=== PATIENT | female | born 1945 | race Caucasian/White ===

== ENCOUNTER 2021-05-31 14:40 | Day surgery (SDC) | payer MEDICARE, OTHER ==
[2021-05-31] MEDS ORDERED: Xylocaine 1% Vial 30 ML PF IJ ONE (14:41)
[2021-05-31] MEDS ORDERED: Depo-Medrol 40 MG/ML IM ONE (14:41)
[2021-05-31] MEDS ORDERED: Decadron 4 MG INJ IJ ONE (14:41)
[2021-05-31] MEDS ORDERED: BUPIVACAINE 0.5% VIAL IJ ONE (14:41)
[2021-05-31] MEDS ORDERED: Lactated Ringers 1,000 ML IV ONE (16:20)
[2021-05-31] MEDS ORDERED: DIPRIVAN 200 MG/20 ML IV ONE (16:30)
[2021-05-31] MEDS ORDERED: Zofran 4 MG/2 ML VIAL ONE (16:38)
--- NOTE | 2021-06-01 11:31 | XRAY ---
22 seconds fluoroscopy time in surgery for injections of the left Si joint and piriformis muscle.
--- NOTE | 2021-06-03 23:15 | XRAY ---
Indication: Left sacroiliac joint and piriformis injections. Intraoperative fluoroscopy was provided for 22 seconds. 3 digital spot images submitted for interpretation demonstrate one needle tip projected over the inferior aspect of the left sacroiliac joint. Another needle tip is seen projected over the expected left piriformis muscle. A small amount of contrast has been injected at the latter site for needle tip placement. Correlate with intraoperative findings/report.
== END 2021-05-31 16:59 | disposition home or self-care (01) ==
LOC: SDC-PAIN 14:40
PROVIDERS: ATTEND Psychiatry & Neurology Pain Medicine
DX: M46.1 Sacroiliitis, not elsewhere classified (principal); M79.18 Myalgia, other site; Z79.899 Other long term (current) drug therapy
CPT/HCPCS: 20552; 64625; 72202; 77002; 99100; J1030; J1100; J2001; J2405; J2704; Q9966

== ENCOUNTER 2023-09-18 13:14 | Day surgery (SDC) | payer MEDICARE, OTHER ==
[2023-09-18] MEDS ORDERED: Sodium Chloride 0.9(Preservative Free) 10 ML IJ ONE (13:15)
[2023-09-18] MEDS ORDERED: Decadron 4 MG INJ IV ONE (13:15)
[2023-09-18] MEDS ORDERED: DIPRIVAN 200 MG/20 ML IV ONE (16:05)
[2023-09-18] MEDS ORDERED: Lactated Ringers 1,000 ML IV ONE (16:34)
--- NOTE | 2023-09-18 16:48 | XRAY ---
Indication: Left L4-S1 transforaminal VICKI. Intraoperative fluoroscopy provided for 20 seconds. 4 digital spot image submitted for interpretation demonstrates posterior needle tips projecting over the expected left L4 and L5 nerve roots. Small amount of contrast injected for needle tip placement. Correlate with intraoperative findings/report.
--- NOTE | 2023-09-18 16:56 | XRAY ---
20 seconds of fluoroscopy was used in surgery for a left L4-S1 transforaminal VICKI.
== END 2023-09-18 16:31 | disposition home or self-care (01) ==
LOC: SDC-PAIN 13:14
PROVIDERS: ATTEND Psychiatry & Neurology Pain Medicine
DX: M54.16 Radiculopathy, lumbar region (principal)
CPT/HCPCS: 64483; 64484; 72100; 77003; J1100; J2704; Q9966

== ENCOUNTER 2024-09-23 13:04 | Day surgery (SDC) | payer MEDICARE ==
[2024-09-23] MEDS ORDERED: dexAMETHasone sodium phosphate IJ ONE (13:05)
[2024-09-23] MEDS ORDERED: Sodium Chloride 0.9(Preservative Free) 10 ML IJ ONE (13:05)
[2024-09-23] MEDS ORDERED: propofoL IV ONE (15:48)
--- NOTE | 2024-09-23 16:54 | XRAY ---
Indication: Left L4-S1 transforaminal VICKI. Intraoperative fluoroscopy provided for 23 seconds. For digital spot image submitted for interpretation demonstrates posterior needle tips projecting over the expected left L4 and L5 nerve roots. Small amount of contrast injected for needle tip placement. Correlate with intraoperative findings/report.
--- NOTE | 2024-09-23 17:20 | XRAY ---
23 seconds of fluoroscopy were used in surgery for a left L4-S1 transforaminal VICKI.
== END 2024-09-23 16:24 | disposition home or self-care (01) ==
LOC: SDC-PAIN 13:04
PROVIDERS: ATTEND Psychiatry & Neurology Pain Medicine
DX: M54.16 Radiculopathy, lumbar region (principal)
CPT/HCPCS: 64483; 64484; 72100; 77003; J1100; J2704; Q9966

== ENCOUNTER 2024-10-22 14:56 | Day surgery (SDC) | payer MEDICARE ==
[2024-10-22] MEDS ORDERED: Depo-Medrol 40 MG/ML IM ONE (14:57)
[2024-10-22] MEDS ORDERED: LIDOCAINE HCL 1% AMPUL 5 ML IJ ONE (14:57)
[2024-10-22] MEDS ORDERED: BUPIVACAINE 0.5% VIAL IJ ONE (14:57)
--- NOTE | 2024-10-22 21:48 | XRAY ---
Indication: Right shoulder and subacromial bursa injection. Intraoperative fluoroscopy provided for 31 seconds. 3 digital spot images submitted for interpretation demonstrates needle tip projecting over right glenohumeral joint superiorly. Second needle tip subacromial. Small amount of contrast injected for both needle tip placement. Correlate with intraoperative findings/report.
--- NOTE | 2024-10-22 21:50 | XRAY ---
31 seconds of fluoroscopy were used in surgery for a right intra-articular shoulder and a right subacromial bursa injection.
== END 2024-10-22 17:40 | disposition home or self-care (01) ==
LOC: SDC-PAIN 14:56
PROVIDERS: ATTEND Psychiatry & Neurology Pain Medicine
DX: M19.011 Primary osteoarthritis, right shoulder (principal); M75.51 Bursitis of right shoulder
CPT/HCPCS: 20610; 73030; 77002; Q9966

== ENCOUNTER 2024-11-18 15:53 | Day surgery (SDC) | payer MEDICARE ==
[2024-11-18] MEDS ORDERED: Sodium Chloride 0.9(Preservative Free) 10 ML IJ ONE (15:54)
[2024-11-18] MEDS ORDERED: LIDOCAINE HCL 1% AMPUL 5 ML IJ ONE (15:54)
[2024-11-18] MEDS ORDERED: dexAMETHasone sodium phosphate IJ ONE (15:54)
[2024-11-18] MEDS ORDERED: Sodium Chloride 0.9% 250 ML 250 ML IV ONE (16:25)
--- NOTE | 2024-11-18 20:20 | XRAY ---
Indication: Cervical VICKI. Intraoperative fluoroscopy provided for 22 seconds. 2 digital spot images submitted for interpretation demonstrates posterior needle tip projecting posterior to cervical thoracic junction. Small amount of contrast injected for needle tip placement. Correlate with intraoperative findings/report. Incidental lower cervical fusion hardware.
--- NOTE | 2024-11-18 20:27 | XRAY ---
22 seconds of fluoroscopy were used in surgery for a cervical VICKI.
== END 2024-11-18 18:35 | disposition home or self-care (01) ==
LOC: SDC-PAIN 15:53
PROVIDERS: ATTEND Psychiatry & Neurology Pain Medicine
DX: M54.12 Radiculopathy, cervical region (principal)
CPT/HCPCS: 62321; 72040; 77003; J1100; Q9966